=== PATIENT | female | born 1945 | race Caucasian/White ===

== ENCOUNTER → 2017-03-12 | Outpatient (CLI) | payer OTHER ==
--- NOTE | 2017-03-12 15:49 | MAMMOGRAPHY REPORT ---
BILATERAL DIGITAL SCREENING MAMMOGRAM WITH CAD: 03/12/2017 CLINICAL HISTORY: Routine screening. Patient has no complaints. TECHNIQUE: Bilateral CC, MLO and repeat left MLO views were obtained. Current study was also evalua valerie with a Computer Aided Detection (CAD) system. COMPARISON: Comparison is made to exams dated: 03/09/2016 mammogram, 03/08/2015 mammogram, 03/02/2014 m ammogram, 02/28/2013 mammogram, 11/03/2011 mammogram, and 11/02/2010 mammogram - [facility] ter. BREAST COMPOSITION: The tissue of both breasts is heterogeneously dense, which may obscure small ma sses. FINDINGS: There are bilateral rodlike secretory calcifications, and a benign coarse calcification w ithin the right breast. No new suspicious mass, architectural distortion or cluster of microcalcifi cations is seen. IMPRESSION: ACR BI-RADS CATEGORY 1: NEGATIVE There is no mammographic evidence of malignancy. A 1 year screening mammogram is recommended. The p atient will receive written notification of the results. Approximately 10% of breast cancers are not detected with mammography. A negative mammographic repor t should not delay biopsy if a clinically suggestive mass is present. Kaia Rosa M.D. ay/:03/12/2017 15:30:20 Landscape Nurseryman: Jeanette Edouard, [facility] letter sent: Normal 1/2 BI-RADS Code: ACR BI-RADS Category 1: Negative
== END | disposition home or self-care (01) ==
LOC: C.MAMM 13:53
PROVIDERS: ATTEND Family Medicine
DX: Z12.31 Encounter for screening mammogram for malignant neoplasm of breast (principal)

== ENCOUNTER → 2018-03-13 | Outpatient (CLI) | payer OTHER ==
--- NOTE | 2018-03-14 15:34 | MAMMOGRAPHY REPORT ---
BILATERAL DIGITAL SCREENING MAMMOGRAM TOMOSYNTHESIS WITH CAD: 03/13/2018 CLINICAL HISTORY: Routine screening. Patient has no complaints. TECHNIQUE: Breast tomosynthesis in addition to standard 2D mammography was performed. Current study was also evaluated with a Computer Aided Detection (CAD) system. COMPARISON: Comparison is made to exams dated: 03/09/2016 mammogram, 03/12/2017 mammogram, 03/08/2015 m ammogram, 03/02/2014 mammogram, 02/28/2013 mammogram, and 11/03/2011 mammogram - [facility] er. BREAST COMPOSITION: The tissue of both breasts is heterogeneously dense, which may obscure small mas ses. FINDINGS: No suspicious masses, calcifications, or areas of architectural distortion are noted in ei ther breast. There has been no significant interval change compared to prior exams. Scattered bilater al benign-appearing calcifications are not significantly changed. IMPRESSION: ACR BI-RADS CATEGORY 2: BENIGN There is no mammographic evidence of malignancy. A 1 year screening mammogram is recommended. The pa tient will receive written notification of the results. Approximately 10% of breast cancers are not detected with mammography. A negative mammographic report should not delay biopsy if a clinically suggestive mass is present. Jacqueline Holliday M.D. ah/:03/13/2018 15:28:26 Exceptional Children Teacher: Verenice KRAUS)(M), [facility] letter sent: Normal 1/2 BI-RADS Code: ACR BI-RADS Category 2: Benign
== END | disposition home or self-care (01) ==
LOC: C.MAMM 14:15
PROVIDERS: ATTEND Family Medicine
DX: Z12.31 Encounter for screening mammogram for malignant neoplasm of breast (principal)

== ENCOUNTER 2024-06-23 10:32 | Inpatient (IN) ==
--- NOTE | 2024-06-23 10:46 | Emergency Department Note ---
Impression & Plan Atrial fibrillation with RVR ADMIT ED Provider Note HPI: History obtained from patient. The patient is a very pleasant 79-year-old female who presents the emergency department with chief complaints of tachycardia. Patient states that she went to her outpatient provider's office today because she thought she might have a urinary tract infection. Patient states that when she was at the doctor's office they noted that her heart rate was markedly elevated and she was therefore sent to the ER to be evaluated. Patient states that this was a surprise to her as she was not having any symptoms in regards to palpitations, shortness of breath, or chest pain. On arrival here to the ED the patient is anxious appearing and she does have some restlessness and tremors, patient states she has a history of essential tremor. Patient denies any current chest pain or shortness of breath. Heart rate is noted to be elevated in the 140s on the monitor consistent with atrial fibrillation with RVR. ROS: - Per HPI Differential Diagnosis: New onset atrial fibrillation with RVR, SVT, WPW, ventricular tachycardia, acute coronary syndrome, critical electrolyte abnormalities, amongst other potential pathologies. *Outpatient medications and allergy history reviewed. PE: General: Alert HEENT: Normocephalic, trachea midline Eyes: Extraocular eye movement is intact, no scleral erythema Pulmonary: Clear to auscultation bilaterally, no wheezing Cardio: Tachycardic rate with an irregular rhythm GI: Abdomen is soft to palpation : No suprapubic tenderness MSK: No evidence of trauma or malformation of the extremities, no edema Skin: No evidence of rash Neuro: Alert, no focal deficits Psychiatric: Cooperative INDEPENDENT INTERPRETATIONS: maintainer plant: (As interpreted by myself): - An order was placed for continuous cardiac monitoring - Patient was noted to be in atrial fibrillation with a rate of 144 EKG: (As interpreted by myself): Rate: 146 Rhythm: Atrial flutter with 2-[address] changes: No ST elevation Intervals: Within normal limits Time: 1039 EKG #2: (As interpreted by myself): Rate: 102 Rhythm: Atrial flutter with variable block ST changes: No ST elevation Intervals: Within normal limits Time: 1121 Chest x-ray: (As interpreted by myself): No acute findings Interventions provided in ED: -IV fluid bolus, IV diltiazem, IV diltiazem drip, IV metoprolol Medical Decision Making: IV was established and lab work obtained, patient was placed on diagnostic cardiac sonographer. Lab work shows no leukocytosis, hemoglobin is normal, platelet count is normal, CMP does not show any evidence of any critical findings. Troponin is negative x 1. Magnesium is within normal limits. TSH is normal. Chest x-ray does not show any evidence of any acute disease. Patient was given IV fluids, diltiazem, as well as IV metoprolol. Heart rate did improve down into the 70s. Patient otherwise remained in no acute distress while here in the ED. This is new onset, patient will be admitted to the hospitalist service for further care and echocardiogram. Patient is in agreement to this plan and she was admitted in stable condition. Consultants/Discussions held with other healthcare providers: -Hospitalist, Dr. Johnson Disposition discussion held by myself with: -Patient * CRITICAL CARE TIME: ( 45 ) minutes -Stabilization of arrhythmia/atrial fibrillation with RVR requiring rate control medications via IV for stabilization, time spent at the bedside, interpretation of diagnostic studies including multiple EKGs, discussion with other healthcare providers and arrangement of admission Diagnosis: 1. Atrial fibrillation with RVR, acute 2. Hypertension, acute Disposition: Admission Momo Ken DO Emergency Medicine Past Med/Surg History Problem List (Updated 06/23/24 @ 13:42 by Momo Ken DO) Atrial flutter with rapid ventricular response Dysuria Atrial fibrillation with RVR (Acute) Encounter for pre-operative examination Encounter for pre-operative examination Medical History Astigmatism Essential tremor just on occasion Needle phobia "severe" > does not want IV on hands, starts to shake when thinking about needles Surgical History History of adenoidectomy History of cataract surgery LEFT History of colonoscopy History of hysterectomy History of tonsillectomy History of tooth extraction Social History Smoking Status: Never smoker Second Hand Exposure: No; Do You Dip or Chew Tobacco: No; Hx Alcohol Use: Yes Alcohol type: wine Preferred Language: Mongolian Communication Ability: Effective Court Security Officer Required: No Beliefs That Will Affect Care: None Current Living Situation: Alone Feels Safe at Home: Yes Assistive Devices: Glasses Allergies Allergies Allergy/AdvReac Type Severity Reaction Status Date / Time No Known Allergies Allergy Verified 08/08/21 06:35 Home Meds Home Medications Medication Instructions Recorded Confirmed acetaminophen 650 mg 650 mg PO Q12H PRN Pain 07/20/21 08/08/21 tablet,extended release biotin 800 mcg tablet 800 mcg PO QDL 07/20/21 08/08/21 cholecalciferol (vitamin D3) 50 50 mcg PO QDL 07/20/21 08/08/21 mcg (2,000 unit) tablet (Vitamin D3) cinnamon bark 500 mg capsule 500 mg PO QDL 07/20/21 08/08/21 (Cinnamon) diclofenac sodium 1 % topical gel 2 g topical QID PRN Pain 07/20/21 08/08/21 omega 3-ujt-jfn-fish oil 1,000 mg 1 cap PO QDL 07/20/21 08/08/21 (120 mg-180 mg) capsule (Fish Oil) zinc 50 mg tablet 50 mg PO QDL 07/20/21 08/08/21 Results & Data (ED) Vital Signs Vital Signs - 24 hr 06/23/24 10:38 06/23/24 10:38 06/23/24 10:42 Temperature Temperature Source Pulse Rate 147 H Pulse Rate [Right Finger] Respiratory Rate 33 H Respiratory Effort / Characteristics Respiratory Depth Blood Pressure 217/150 H 217/150 H Blood Pressure [Right Arm] Blood Pressure Mean 163 163 Blood Pressure Mean [Right Arm] Pulse Oximetry Oxygen Delivery Method Oxygen Flow Rate Sepsis Recent Fever Within 48 Hours Sepsis New/Unexplained Change in Mental Status Sepsis Action Taken by Nursing 06/23/24 10:54 06/23/24 11:00 06/23/24 11:21 Temperature Temperature Source Pulse Rate 147 H 146 H 125 H Pulse Rate [Right Finger] Respiratory Rate 21 29 H Respiratory Effort / Characteristics Respiratory Depth Blood Pressure Blood Pressure [Right Arm] Blood Pressure Mean Blood Pressure Mean [Right Arm] Pulse Oximetry Oxygen Delivery Method Oxygen Flow Rate Sepsis Recent Fever Within 48 Hours Sepsis New/Unexplained Change in Mental Status Sepsis Action Taken by Nursing 06/23/24 11:31 06/23/24 11:31 06/23/24 11:31 Temperature Temperature Source Pulse Rate Pulse Rate [Right Finger] Respiratory Rate Respiratory Effort / Characteristics Respiratory Depth Blood Pressure 150/110 H 150/110 H 150/110 H Blood Pressure [Right Arm] Blood Pressure Mean 114 114 114 Blood Pressure Mean [Right Arm] Pulse Oximetry Oxygen Delivery Method Oxygen Flow Rate Sepsis Recent Fever Within 48 Hours Sepsis New/Unexplained Change in Mental Status Sepsis Action Taken by Nursing 06/23/24 11:31 06/23/24 11:33 06/23/24 11:39 Temperature Temperature Source Pulse Rate 86 75 Pulse Rate [Right Finger] Respiratory Rate 17 22 Respiratory Effort / Characteristics Respiratory Depth Blood Pressure 150/110 H Blood Pressure [Right Arm] Blood Pressure Mean 114 Blood Pressure Mean [Right Arm] Pulse Oximetry Oxygen Delivery Method Oxygen Flow Rate Sepsis Recent Fever Within 48 Hours Sepsis New/Unexplained Change in Mental Status Sepsis Action Taken by Nursing 06/23/24 11:40 06/23/24 11:40 06/23/24 11:43 Temperature 36.5 C Temperature Source Oral Pulse Rate 145 H Pulse Rate [Right Finger] Respiratory Rate 20 Respiratory Effort / Characteristics Non-Labored Respiratory Depth Normal Blood Pressure 153/114 H 153/114 H 245/117 H Blood Pressure [Right Arm] Blood Pressure Mean 125 125 159 Blood Pressure Mean [Right Arm] Pulse Oximetry 99 Oxygen Delivery Method Room Air Oxygen Flow Rate Sepsis Recent Fever Within 48 Hours No Sepsis New/Unexplained Change in Mental Status No Sepsis Action Taken by Nursing No Action Required 06/23/24 11:47 06/23/24 11:47 06/23/24 11:57 Temperature Temperature Source Pulse Rate 110 H Pulse Rate [Right Finger] 77 Respiratory Rate 18 21 Respiratory Effort / Characteristics Non-Labored Respiratory Depth Normal Blood Pressure Blood Pressure [Right Arm] 200/102 H Blood Pressure Mean Blood Pressure Mean [Right Arm] 134 Pulse Oximetry 99 Oxygen Delivery Method Room Air Room Air Oxygen Flow Rate 99 Sepsis Recent Fever Within 48 Hours Sepsis New/Unexplained Change in Mental Status Sepsis Action Taken by Nursing 06/23/24 12:00 06/23/24 12:00 06/23/24 12:12 Temperature Temperature Source Pulse Rate 124 H Pulse Rate [Right Finger] Respiratory Rate 19 Respiratory Effort / Characteristics Respiratory Depth Blood Pressure 163/121 H 163/121 H Blood Pressure [Right Arm] Blood Pressure Mean 140 140 Blood Pressure Mean [Right Arm] Pulse Oximetry Oxygen Delivery Method Oxygen Flow Rate Sepsis Recent Fever Within 48 Hours Sepsis New/Unexplained Change in Mental Status Sepsis Action Taken by Nursing 06/23/24 12:31 06/23/24 13:00 Temperature Temperature Source Pulse Rate 102 H Pulse Rate [Right Finger] 74 Respiratory Rate 18 Respiratory Effort / Characteristics Non-Labored Respiratory Depth Normal Blood Pressure 169/95 H Blood Pressure [Right Arm] 146/91 H Blood Pressure Mean Blood Pressure Mean [Right Arm] 109 Pulse Oximetry 97 Oxygen Delivery Method Room Air Oxygen Flow Rate Sepsis Recent Fever Within 48 Hours Sepsis New/Unexplained Change in Mental Status Sepsis Action Taken by Nursing Laboratory Data 06/23/24 10:50 06/23/24 10:50 Lab Results 06/23/24 Range/Units 10:50 WBC 7.47 (4.8-10.8) K/ul RBC 4.48 (4.20-5.40) M/uL Hgb 14.3 (12.0-16.0) g/dl Hct 43.2 (37.0-47.0) % MCV 96.4 (80.0-100.0) fL MCH 31.9 (25.0-34.0) pg MCHC 33.1 (32.0-36.0) g/dL RDW Std Deviation 48.1 H (36.4-46.3) fL RDW Coeff of Walker 13.5 (11.5-14.5) % Plt Count 228 (130-400) K/uL MPV 9.9 (9.4-12.4) fL Immature Gran % (Auto) 0.1 % Neut % (Auto) 67.0 % Lymph % (Auto) 23.4 % [place] % (Auto) 8.7 % Eos % (Auto) 0.3 % Baso % (Auto) 0.5 % Neut # (Auto) 5.00 (1.40-6.50) K/uL Lymph # (Auto) 1.75 (1.20-3.40) K/uL [place] # (Auto) 0.65 H (0.11-0.59) K/uL Eos # (Auto) 0.02 (0.00-0.50) K/uL Baso # (Auto) 0.04 (0.00-0.20) K/uL Immature Gran # (Auto) 0.01 (0.01-0.20) K/uL PT 11.0 (9.0-12.0) Seconds INR 1.0 (0.9-1.1) Sodium 137 (136-145) mmol/L Potassium 4.4 (3.5-5.1) mmol/L Chloride 103 (98-107) mmol/L Carbon Dioxide 23 (21-32) mmol/L Anion Gap 11 (3-11) BUN 18 (6-23) mg/dl Creatinine 0.82 (0.6-1.2) mg/dl Est Cr Clr Drug Dosing Not Reportable Est GFR ( Amer) 80.0 ml/min Est GFR (Non-Af Amer) 69.0 ml/min BUN/Creatinine Ratio 22.0 H (10-20) Glucose 124 H (70-99(Fasting)) mg/dl Calcium 9.7 (8.6-10.3) mg/dl Magnesium 2.2 (1.7-2.4) mg/dl Total Bilirubin 0.6 (0.2-1.0) mg/dl AST 20 (13-39) U/L ALT 16 (7-52) U/L Alkaline Phosphatase 72 (34-104) U/L Troponin I High Sens 11.8 (0-14) pg/ml Total Protein 7.8 (6.0-8.3) gm/dl Albumin 4.5 (3.4-5.0) gm/dl Globulin 3.3 (2.5-4.0) gm/dl Albumin/Globulin Ratio 1.4 (0.9-2) TSH 1.880 (0.300-4.500) uIu/ml Administered Medications Diltiazem HCl 125 mg/ Dextrose 125 mls @ 5 mls/hr IV .Q24H [facility]; Protocol Stop: 07/23/24 12:14 Last Admin: 06/23/24 12:31 Dose: 5 mg/hr, 5 mls/hr Documented By: ALS Co-signed By: ADRIÁN Discontinued Medications Diltiazem HCl (Diltiazem Hcl 5 Mg/Ml 5 Ml Vial) 15 mg IV NOW STA Stop: 06/23/24 10:52 Last Admin: 06/23/24 11:03 Dose: 15 mg Documented By: ALS Co-signed By: ADRIÁN Sodium Chloride (Nss) 500 mls @ 999 mls/hr IV .Q31M STA Stop: 06/23/24 11:13 Last Admin: 06/23/24 11:33 Dose: 999 mls/hr Documented By: ADRIÁN Sodium Chloride (Nss) 1,000 mls @ 999 mls/hr IV .Q1H1M ONE Stop: 06/23/24 11:46 Last Admin: 06/23/24 11:33 Dose: 999 mls/hr Documented By: HS Lorazepam (Lorazepam 1 Mg/1 Ml Syr Ed Inj Use) 1 mg IV ONE STA Stop: 06/23/24 10:44 Last Admin: 06/23/24 11:00 Dose: 1 mg Documented By: ALS Metoprolol Tartrate (Metoprolol Tartrate 1 Mg/Ml Vial) 5 mg IV NOW STA Stop: 06/23/24 12:09 Last Admin: 06/23/24 12:31 Dose: 5 mg Documented By: ALS Imaging Data Radiologist's Impression: Chest X-Ray 06/23/24 10:43 XR chest 1V portable CLINICAL HISTORY: Dysrhythmia COMPARISON STUDY: No previous studies for comparison. FINDINGS: Lung volumes are normal. Lungs are clear. There is no pneumothorax or pleural effusion. There is mild cardiomegaly. Mediastinal contours are normal. There is no evidence for pulmonary edema. IMPRESSION: No acute cardiopulmonary findings. Cardiomegaly. ACT 112: Negative or not required by law. Electronically signed by: Jeferson Go M.D. 06/23/2024 11:30 AM Discharge Plan Visit Data Chief Complaint: Cardiac Assessment ED Provider: Momo Ken Discharge Problem: Atrial fibrillation with RVR Forms Stand Alone Forms: [facility] [employer] Prescriptions Prescriptions: No Action biotin 800 mcg Tablet 800 mcg PO QDL acetaminophen 650 mg Tablet Extended Release 650 mg PO Q12H PRN (Reason: Pain) zinc 50 mg Tablet 50 mg PO QDL cinnamon bark [Cinnamon] 500 mg Capsule 500 mg PO QDL diclofenac sodium 1 % Gel 2 g TOPICAL QID PRN (Reason: Pain) cholecalciferol (vitamin D3) [Vitamin D3] 50 mcg (2,000 unit) Tablet 50 mcg PO QDL omega 2-ldz-cfg-fish oil [Fish Oil] 1,000 mg (120 mg-180 mg) Capsule 1 cap PO QDL Referrals Referrals: Edilia Barrientos DO [Primary Care Provider] -
[2024-06-23] MEDS: LORazepam 1 MG/1 ML SYR ED Inj Use IV STA (11:00)
[2024-06-23] MEDS: dilTIAZem HCl 5 MG/ML 5 ML VIAL IV STA (11:03)
[2024-06-23 11:10] LABS: Basophils # (auto) 0.04 K/uL (0.00-0.20); Basophils % (auto) 0.5 %; Eosinophils # (auto) 0.02 K/uL (0.00-0.50); Eosinophils % (auto) 0.3 %; Hematocrit (blood only) 43.2 % (37.0-47.0); Hemoglobin 14.3 g/dl (12.0-16.0); Immature Granulocytes # (auto) 0.01 K/uL (0.01-0.20); Immature Granulocytes % (auto) 0.1 %; Lymphocytes # (auto) 1.75 K/uL (1.20-3.40); Lymphocytes % (auto) 23.4 %; Mean Corpuscular Hemoglobin 31.9 pg (25.0-34.0); Mean Corpuscular Hgb Conc 33.1 g/dL (32.0-36.0); Mean Corpuscular Volume 96.4 fL (80.0-100.0); Mean Platelet Volume 9.9 fL (9.4-12.4); Monocytes # (auto) 0.65 K/uL (0.11-0.59); Monocytes % (auto) 8.7 %; Platelet Count 228 K/uL (130-400); RDW Coefficient of Variation 13.5 % (11.5-14.5); RDW Standard Deviation 48.1 fL (36.4-46.3); Red Blood Count 4.48 M/uL (4.20-5.40); White Blood Count 7.47 K/ul (4.8-10.8)
[2024-06-23 11:25] LABS: Alanine Aminotransferase 16 U/L (7-52); Albumin Globulin Ratio 1.4 (0.9-2); Albumin Level 4.5 gm/dl (3.4-5.0); Alkaline Phosphatase 72 U/L (34-104); Anion Gap 11 (3-11); Aspartate Aminotransferase 20 U/L (13-39); Bilirubin,Total 0.6 mg/dl (0.2-1.0); Blood Urea Nitrogen 18 mg/dl (6-23); Calcium 9.7 mg/dl (8.6-10.3); Carbon Dioxide 23 mmol/L (21-32); Chloride 103 mmol/L (98-107); Globulin 3.3 gm/dl (2.5-4.0); Glucose 124 mg/dl (70-99(Fasting)); Magnesium 2.2 mg/dl (1.7-2.4); Potassium 4.4 mmol/L (3.5-5.1); Sodium 137 mmol/L (136-145); Total Protein 7.8 gm/dl (6.0-8.3)
[2024-06-23 11:28] LABS: Troponin I High Sensitivity 11.8 pg/ml (0-14)
--- NOTE | 2024-06-23 11:32 | XRay Report ---
XR chest 1V portable CLINICAL HISTORY: Dysrhythmia COMPARISON STUDY: No previous studies for comparison. FINDINGS: Lung volumes are normal. Lungs are clear. There is no pneumothorax or pleural effusion. The re is mild cardiomegaly. Mediastinal contours are normal. There is no evidence for pulmonary edema. IMPRESSION: No acute cardiopulmonary findings. Cardiomegaly. ACT 112: Negative or not required by law. Electronically signed by: Jeferson Go M.D. 06/23/2024 11:30 AM
[2024-06-23] MEDS: SODIUM CHLORIDE 0.9% 500 ML IV STA (11:33)
[2024-06-23] MEDS: SODIUM CHLORIDE 0.9% 1,000 ML IV ONE (11:33)
--- NOTE | 2024-06-23 11:52 | History & Physical Report ---
Date of Service June 23, 2024 Assessment & Plan (1) Atrial flutter with rapid ventricular response: Plan: -Patient was found to be in Atrial flutter with RVR in the ED. -No history of A-fib/flutter previously. -Initially given metoprolol, Ativan, and 15mg diltiazem. Then patient still remains tachycardic. -Diltiazem drip started at time of admission. Will transition to p.o. after echo and once patient reverts back to sinus rhythm. -CBC benign, PT/INR normal, CMP benign, TSH normal. -Troponin negative. -ECHO ordered. -[id number] of 3, has-bled 0. -Will start on Eliquis 5mg BID. Discussed with patient, patient in agreement. -CBC, CMP, hemoglobin A1c, lipid panel, magnesium, and phosphorus ordered for the a.m. (2) Dysuria: Plan: -Patient with dysuria and urine frequency which prompted her to see her PCP this morning. -UA from the office without gross abnormality for UTI. UA in the ED negative for UTI. -Will hold off on antibiotics at this time. Plan Fluids: none Nutrition: NPO Code status: full code DVT ppx: elqiuis Dispo:MedSurg with telemetry History of Present Illness Chief Complaint: New onset A-flutter Primary Care Provider: Edilia Barrientos DO Patient is a 79-year-old female who presents to the hospital after having an abnormal EKG done at her PCP. Patient was seen by PCP this morning for possible UTI symptoms. She did not have any chest pain or cardiac symptoms though was found to have A-fib/a flutter on EKG. She was instructed to go to the emergency room. In the emergency department patient has tachycardia though is not having any chest pain, palpitations or shortness of breath. Patient does have some tremors though does have a history of essential tremors and states that she gets very worked up when having to deal with needles. Patient does state that she has been urinating a lot and having some dysuria over the past couple days. Denies any chest pain, fevers or chills, palpitations, shortness of breath, or abdominal pain over the last couple days. Does state that she had some bladder pressure. In the ED: Patient is tachycardic with heart rate in the 140s and EKG showing atrial flutter with RVR. Patient was given Ativan, metoprolol, and diltiazem in the ED. She still remained tachycardic so was started on a Cardizem drip. Allergies Allergy/AdvReac Type Severity Reaction Status Date / Time No Known Allergies Allergy Verified 06/23/24 20:38 Home Medications Medication Instructions Recorded Confirmed Type acetaminophen 650 mg 650 mg PO Q12H PRN Pain 07/20/21 06/23/24 History tablet,extended release biotin 800 mcg tablet 800 mcg PO QDL 07/20/21 06/23/24 History cholecalciferol (vitamin D3) 50 50 mcg PO QDL 07/20/21 06/23/24 History mcg (2,000 unit) tablet (Vitamin D3) diclofenac sodium 1 % topical gel 2 g topical QID PRN Pain 07/20/21 06/23/24 History omega 7-fpx-yum-fish oil 1,000 mg 1 cap PO QDL 07/20/21 06/23/24 History (120 mg-180 mg) capsule (Fish Oil) zinc 50 mg tablet 50 mg PO QDL 07/20/21 06/23/24 History magnesium 250 mg tablet 250 mg PO DAILY 06/23/24 06/23/24 History Past Med/Surg History Problem List (Updated 06/23/24 @ 13:42 by Momo Ken DO) Atrial flutter with rapid ventricular response Dysuria Atrial fibrillation with RVR (Acute) Encounter for pre-operative examination Encounter for pre-operative examination Medical History Astigmatism Essential tremor just on occasion Needle phobia "severe" > does not want IV on hands, starts to shake when thinking about needles Surgical History History of adenoidectomy History of cataract surgery LEFT History of colonoscopy History of hysterectomy History of tonsillectomy History of tooth extraction Social History Smoking Status: Never smoker Second Hand Exposure: No; Do You Dip or Chew Tobacco: No; Hx Alcohol Use: No Hx Substance Use: No Preferred Language: Barbadian Communication Ability: Effective Power Digger Operator Required: No Beliefs That Will Affect Care: None Current Living Situation: Alone Feels Safe at Home: Yes Safety Concerns: Feels Safe At This Time Assistive Devices: Glasses Review of Systems Review of Systems: All systems reviewed & are unremarkable except as noted in Subjective Physical Exam Physical Exam: Constitutional: well-appearing, mild acute distress, shaking HEENT: NCAT, no conjunctival injection CV: Irregularly irregular rate and rhythm, no murmur appreciated, extremities well-perfused, no LE edema Resp: CTABL, no wheezes/rales/rhonchi appreciated, no increased work of breathing GI: soft, nondistended, nontender, BS normoactive MSK: no gross deformities appreciated Skin: warm, dry, no rash appreciated Neuro: alert, oriented, no focal neurologic deficit appreciated Results & Data Results & Data Vital Signs (Past 12 Hours) Vital Signs Temp Pulse Pulse Resp BP BP Pulse Ox 06/23/24 11:47 77 18 200/102 H 99 06/23/24 11:47 06/23/24 11:43 36.5 C 145 H 20 245/117 H 99 06/23/24 10:54 147 H O2 Del Method O2 Flow Rate 06/23/24 11:47 Room Air 06/23/24 11:47 Room Air 99 06/23/24 11:43 Room Air 06/23/24 10:54 Supervising Physician Co-Signing Physician Notes I personally saw and examined the patient. I independently reviewed the labs, EKG, imaging, problem list, medication list, past medical history and family history. 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 Well controlled now on dilt drip @ 5mg/hr. TTE with preserved EF and no wall motion abnormalities. O/E HS RRR, no murmurs, Chest CTAB, Abdo SNT A/P A. flutter RVR - Eliquis for anticoagulation, rate controlled now for hours on diltiazem 5mg /hr therefore will switch to 60mg PO TID with goal of switching to CD on discharge since TTE shows preserved EF. Patient very needle phobic and on discussion with benefits/risks she does not want any further labs unless absolutely necessary Mg > 2, K > 4. Resident Activity Tracking Resident Involvement: Resident Care Provided Care Provided: Adult [facility]
[2024-06-23] MEDS: dilTIAZem HCL 125 MG in DEXTROSE 5% 100 ML IV SCH (12:31)
[2024-06-23] MEDS: METOPROLOL TARTRATE 1 MG/ML VIAL IV STA (12:31)
[2024-06-23 13:55] LABS: Appearance Urine Clear (Clear); Bilirubin Urine Negative (Negative); Blood Urine Negative (Negative); Color Urine Yellow; Glucose Urine UA Negative (Negative); Ketones Urine Negative (Negative); Leukocyte Esterase Urine Negative (Negative); Nitrite Urine Negative (Negative); Protein Urine Negative (Negative); Specific Gravity Urine 1.006 (1.000-1.030); Urobilinogen Urine Negative (Negative)
[2024-06-23 14:49] LABS: Partial Thromboplastin Ratio 0.9; Partial Thromboplastin Time 24 Seconds (21-31)
[2024-06-23] MEDS: STAT IV Infusion **Titration per Protocol STA (15:03)
--- NOTE | 2024-06-23 19:10 | XCELERA ---
[id number]
[2024-06-23] MEDS: APIXABAN 5 MG TABLET PO SCH (20:03)
[2024-06-23] MEDS: dilTIAZem HCl 60 MG TAB PO SCH (21:12)
--- NOTE | 2024-06-24 04:55 | Billing Data ---
Date of Service June 23, 2024 Coding Level of Care Code 86019 INT INP/OBS CARE
[2024-06-24] MEDS: METOPROLOL TARTRATE 1 MG/ML VIAL IV STA (13:08)
[2024-06-24] MEDS: OPTIRAY 320 125ml IV ONE (14:10)
--- NOTE | 2024-06-24 15:31 | CT Scan Report ---
CT ANGIOGRAM OF THE BRAIN CLINICAL HISTORY: Family history of aneurysm. COMPARISON STUDY: No priors. TECHNIQUE: Following the IV administration of 120 cc of Optiray 320, CT angiogram of the brain was pe rformed from the skull base to the vertex. Images are reviewed in the axial, sagittal, and coronal pl anes. 3-D MIPS images are created and assessed. IV contrast was administered without complication. A dose lowering technique was utilized adhering to the principles of ALARA. CT DOSE: 424.06 mGy.cm FINDINGS: Brain parenchyma: There is age related involutional change noting mildly arthropathic disease. There is no evidence of hemorrhage, mass effect, or acute territorial ischemia noting angiographic phase te [place]nique. There is no evidence of enhancing mass lesion on the angiogram phase images. No extra-axial fluid collection is seen. Mccollum-white matter differentiation is preserved. Ventricles, sulci, and cisterns: Normal in configuration. CT angiogram of the brain: The internal carotid arteries are widely patent, as are the anterior and m iddle cerebral arteries. The left A1 segment is atretic. The vertebrobasilar system and posterior cer ebral arteries are widely patent. The left vertebral artery is dominant. There is a left posterior co mmunicating artery. There is no aneurysm, high-grade stenosis, or focal vessel cutoff identified thro ughout the intracranial circulation. Dural sinuses: Clear as visualized. Orbits: The bony orbits are intact. The orbital contents are normal as visualized noting bilateral oc ular lens implants. Sinuses and mastoids: The visualized paranasal sinuses are clear. There is trace right mastoid effusi on. The left mastoid air cells are well pneumatized. Calvarium: Unremarkable. IMPRESSION: 1. There is no evidence of hemorrhage, mass effect, or acute territorial ischemia noting angiographic phase technique. 2. Unremarkable CT angiogram of the brain. ACT 112: Negative or not required by law. Electronically signed by: J Luis Vidal M.D. 06/24/2024 3:29 PM
--- NOTE | 2024-06-24 15:36 | CT Scan Report ---
NECK CTA HISTORY: [facility] ruptured brain aneurysm TECHNIQUE: Multiaxial CT images of the neck were performed following the intravenous administration o f contrast to evaluate the major cervical vessels. 3D/MIP images were also obtained. Sagittal and cor onal reformats were reviewed. All measurements were calculated based on NASCET criteria. A dose low ering technique was utilized adhering to the principles of ALARA. COMPARISON STUDY: None. FINDINGS: The aortic arch and proximal great vessels are widely patent. There is no significant sten osis, occlusion, or dissection identified within the bilateral common carotid, internal carotid, or v ertebral arteries. Degenerative changes within the cervical spine. There is a 1 cm hypodense nodule/c yst within the left side of the vallecula. There are few subcentimeter thyroid nodules. These do not meet CT criteria for follow-up. There is a hypoplastic right vertebral artery. IMPRESSION: 1. No significant stenosis, occlusion, or dissection identified within the carotid or vertebral arter ies. 2. There is a 1 cm hypodense nodule/cyst within the left side of the vallecula. Direct visualization recommended for further evaluation. ACT 112: Negative or not required by law. Electronically signed by: Fidel Ribeiro M.D. 06/24/2024 3:34 PM
--- NOTE | 2024-06-24 20:44 | Hospitalist Progress Note ---
Date of Service June 24, 2024 Assessment & Plan (1) Atrial flutter with rapid ventricular response: Plan: Improved rates with IR diltiazem. Will transition to diltiazem CD 180mg daily. CHADS-VASc score of 3 (sex, age) - discussed pros/cons, risks/benefits of anticoagulation - patient agreeable. Start Eliquis 5mg BID. $47/month cost. Echo with preserved EF. TSH wnl. Observe rates overnight to ensure good rate control. (2) Dysuria: Plan: Patient with dysuria and urine frequency which prompted her to see her PCP the AM of admission. UA from the office without gross abnormality for UTI. UA in the ED completely normal. Will have to see if a urine cx was sent from the office. Check urine GC/chla to be complete. (3) Family history of brain aneurysm: Plan: father, other paternal relatives in light of initiation of Eliquis she was agreeable to aneurysm screening CTA head/neck completed - NO ANEURYSMS seen Incidental finding of vallecula lesion - sent to ENT post-d/c for this Plan likely home in am Admission and Anticipated Discharge Date Admission Date: June 23, 2024 Subjective patient feeling well even when her HR is fast on monitors she has NO palpitations, chest pain, dyspnea or dizziness/lightheadedness walks 4 miles/day for exercise with no limitations we discussed anticoagulation for stroke risk reduction (CHADS-VASC score is 3) she is agreeable to Eliquis she reports strong famhx of cerebral aneurysms father in his 60s from rupture of such other paternal family members with cerebral aneurysms as well has never had screening herself has a 4 month long cruise she is leaving for on Sunday departs from the [facility] anxious to d/c home to prepare for this continues with dysuria tele - rates 120s at peak with exercise; otherwise rates <100 at rest Review of Systems Review of Systems: CV - no cp, no orthopnea, no edema pulm - no dyspnea or STEWART GI - no abd pain neuro - no dizziness or lightheadedness Physical Exam Physical Exam: gen - NAD, looks well neck - no JVD mouth - MMM heart - irregular, s1 s2, no murmur; rate <100 abd - soft NT ND BS+ ext - no edema, pulses 2+ b/l psych - a/o x 3 neuro - tremor of head/neck (essential) Results & Data Results & Data Vital Signs (Past 12 Hours) Vital Signs Temp Pulse Pulse Resp BP Pulse Ox O2 Del Method 06/24/24 19:14 36.5 C 78 18 157/86 H 98 Room Air 06/24/24 16:41 36.6 C 75 17 142/82 H 96 06/24/24 15:50 36.6 C 75 17 142/82 H 96 Room Air 06/24/24 14:28 88 06/24/24 12:17 36.6 C 82 17 156/84 H 97 Room Air PG Care Time/CCT Total # of Minutes Spent Total Time Spent with Patient: Total time spent is greater than 50% in coordination of care (as documented) at patient's floor/unit and/or counseling patient: Coding Level of Care Code 15235 SUB INP/OBS CARE 2/35MIN Diagnoses Atrial flutter with rapid ventricular response I48.92 Dysuria R30.0 Family history of brain aneurysm Z82.49
[2024-06-24] MEDS: dilTIAZem HCL 180 MG CAPCR PO SCH (21:38)
--- NOTE | 2024-06-25 05:47 | Electrocardiogram Report ---
Test Reason : Blood Pressure : */* mmHG Vent. Rate : 146 BPM Atrial Rate : 292 BPM P-R Int : * ms QRS Dur : 66 ms QT Int : 234 ms P-R-T Axes : 104 92 22 degrees QTcB Int : 364 ms Suspect arm lead reversal, interpretation assumes no reversal Atrial flutter with 2:1 A-V conduction Rightward axis Abnormal ECG No previous ECGs available Confirmed by Donavan Taylor ([id number]) on 06/25/2024 5:47:33 AM Referred By: Confirmed By: Donavan Taylor
--- NOTE | 2024-06-25 09:49 | Cardiology Consultation ---
Date of Consultation June 25, 2024 Assessment & Plan (1) Atrial flutter with rapid ventricular response: Plan 1. Atrial flutter: She presented in atrial flutter, it was asymptomatic so the duration is not known. She did have a physical examination in the summer 2022, this was by a nurse in her home for insurance so I suspect if she had a rapid heart rate it would have been detected but an electrocardiogram was not done. We have to assume it is longstanding and that she will need anticoagulation before conversion, or we could consider VON guided cardioversion but I would prefer not since she may have an early recurrence and will be on a cruise ship. Her heart rate is overall adequately controlled, she does go 2-1 when she is active but that is relatively infrequent based on telemetry and for the most part on telemetry her heart rate is adequately controlled. I would therefore recommend continuing Eliquis, I agree with diltiazem, probably 240 mg daily, and I can give her prescriptions to last her until she gets back. She is going to be back at the end of July, so I can schedule her to come into the office in early August and see if she is still in atrial flutter and if so we can cardiovert. I do not think we should try to control the heart rate tightly as if she converts on her own, which is certainly possible, she may be quite slow and she will be on a ship. I think her current rate control is adequate with normal LV function. History of Present Illness Reason for Consultation: Atrial flutter Attending Physician: Mike Mckeon MD History of Present Illness This is a 79-year-old woman who presented to her PCP on the morning of June 23, 2024 for possible UTI symptoms. She was noted to be in atrial fibrillation with a rapid heart rate and was sent to the emergency room. Her presenting electrocardiogram here shows a fairly well organized atrial flutter at about 102 bpm. She evidently had no symptoms regarding this arrhythmia. It is not clear how long she has had this arrhythmia. An echocardiogram done June 23, 2024 shows normal left ventricular size with concentric left ventricular hypertrophy and an ejection fraction 55 to 60%. Mild mitral regurgitation. She has not had any symptoms which would help us determine the duration of her arrhythmia. She has not had an electrocardiogram for a long time, she did have a life insurance evaluation in the summer 2022 but that may not have picked it up and I do not think she had an electrocardiogram at that time. She has been very active and has no symptoms or limitations in activities. Allergies Allergy/AdvReac Type Severity Reaction Status Date / Time No Known Allergies Allergy Verified 06/23/24 20:38 Home Medications Medication Instructions Recorded Confirmed Type acetaminophen 650 mg 650 mg PO Q12H PRN Pain 07/20/21 06/23/24 History tablet,extended release biotin 800 mcg tablet 800 mcg PO QDL 07/20/21 06/23/24 History cholecalciferol (vitamin D3) 50 50 mcg PO QDL 07/20/21 06/23/24 History mcg (2,000 unit) tablet (Vitamin D3) zinc 50 mg tablet 50 mg PO QDL 07/20/21 06/23/24 History magnesium 250 mg tablet 250 mg PO DAILY 06/23/24 06/23/24 History diltiazem HCl 240 mg 240 mg PO DAILY #90 caps 06/25/24 Rx capsule,extended release 24 hr (Cardizem CD) apixaban 5 mg tablet (Eliquis) 5 mg PO BID #180 tabs 06/26/24 Rx Patient History Medical History Astigmatism Essential tremor just on occasion Needle phobia "severe" > does not want IV on hands, starts to shake when thinking about needles Surgical History History of cataract surgery LEFT History of hysterectomy History of colonoscopy History of tooth extraction History of adenoidectomy History of tonsillectomy Social History Smoking Status: Never smoker Second Hand Exposure: No; Do You Dip or Chew Tobacco: No; Hx Alcohol Use: No Hx Substance Use: No Preferred Language: Urdu Communication Ability: Effective Embedded Systems Software Developer Required: No Beliefs That Will Affect Care: None Current Living Situation: Alone Feels Safe at Home: Yes Assistive Devices: Glasses Physical Exam Physical Exam: Constitutional: Alert, cooperative and in no distress. HEENT: Unremarkable Neck: No jugular venous distention, carotid pulses are irregular but otherwise normal and equal bilaterally without bruits. Pulmonary: Clear to auscultation bilaterally. Cardiac: Irregular rhythm with no murmur, gallop or rub. Abdomen: Soft, nontender with normal bowel sounds. Extremities: No edema. Distal pulses intact. Neurologic: No focal findings. Gait is steady. Skin: No rash, ecchymoses or petechiae. Results & Data Vital Signs (Past 12 Hours) Vital Signs Temp Pulse Pulse Resp BP Pulse Ox O2 Del Method 06/25/24 07:42 36.7 C 82 18 180/103 H 94 Room Air 06/25/24 04:15 36.6 C 87 18 158/87 H 95 Room Air 06/24/24 23:03 76 06/24/24 22:24 36.5 C 74 18 149/84 H 95 Room Air Diagnostic Findings Telemetry: Atrial flutter with a controlled but somewhat variable ventricular response. PG Care Time/CCT Total # of Minutes Spent Total Time Spent with Patient: Total time spent is greater than 50% in coordination of care (as documented) at patient's floor/unit and/or counseling patient: Coding Level of Care Code 79380 IN/OBS CONSULT LVL 4,60M Diagnoses Atrial flutter with rapid ventricular response I48.92
[2024-06-25] MEDS: dilTIAZem HCl 60 MG TAB PO ONE (09:52)
--- NOTE | 2024-06-25 10:45 | Discharge Summary ---
Discharge Summary Date of Service date of admission - June 23, 2024 date of discharge - June 25, 2024 Principal Dx & Hospital Course #1 = Principal Diagnosis (1) Atrial flutter with rapid ventricular response: Presented with asymptomatic atrial flutter with RVR. Was initially on diltiazem infusion, then IR diltiazem, then transitioned to d iltiazem CD 240mg daily. CHADS-VASc score of 3 (sex, age) - discussed pros/cons, risks/benefits of anticoagulation - patient agreeable. Started Eliquis 5mg BID. $47/month cost. Echo with preserved EF. Left atrium and right atrium both mildly dilated. TSH wnl. K/mag levels wnl. Rates at rest were generally well-controlled. Rates with activity were 100-120, occasionally higher at times. Seen by Dr Nomi Joshi, [facility]. He will see Ms Chen in the office in ~2 months. If she remains in a.flutter consideration towards elective cardioversion will be discussed at that time. (2) Dysuria: Patient with dysuria and urine frequency which prompted her to see her PCP the AM of admission. UA from the office without gross abnormality for UTI. UA in the ED completely normal. Urine cx sent from the office did not grow a pathogen. Checked urine GC/chla to be complete - both returned negative. (3) Family history of brain aneurysm: father, other paternal relatives with h/o brain aneurysm. in light of initiation of Eliquis she was agreeable to aneurysm screening. CTA head/neck completed - NO ANEURYSMS seen. Incidental finding of vallecula lesion/nodule - send to ENT post-d/c for this. (4) Abnormal CT scan, neck: Incidental finding of vallecula lesion/nodule on CTA neck - send to ENT post-d/c for this. Of note - she denies any trouble with swallowing, breathing, etc. Notes For Next Care Provider 1. f/u [facility] - Nomi Joshi - in about 2 months 2. ENT F/u for ?vallecula lesion seen on CT imaging Medication Changes From Visit 1. Diltiazem CD 240mg daily 2. Eliquis 5mg BID Admission HPI Per Admitting Provider Patient is a 79-year-old female who presents to the hospital after having an abnormal EKG done at her PCP. Patient was seen by PCP this morning for possible UTI symptoms. She did not have any chest pain or cardiac symptoms though was found to have A-fib/a flutter on EKG. She was instructed to go to the emergency room. In the emergency department patient has tachycardia though is not having any chest pain, palpitations or shortness of breath. Patient does have some tremors though does have a history of essential tremors and states that she gets very worked up when having to deal with needles. Patient does state that she has been urinating a lot and having some dysuria over the past couple days. Denies any chest pain, fevers or chills, palpitations, shortness of breath, or abdominal pain over the last couple days. Does state that she had some bladder pressure. In the ED: Patient is tachycardic with heart rate in the 140s and EKG showing atrial flutter with RVR. Patient was given Ativan, metoprolol, and diltiazem in the ED. She still remained tachycardic so was started on a Cardizem drip. Discharge Exam gen - NAD, looks well neck - no JVD mouth - MMM, no posterior throat lesions heart - irregular, s1 s2, no murmur; rate <100 abd - soft NT ND BS+ ext - no edema, pulses 2+ b/l psych - a/o x 3 neuro - tremor of head/neck (essential) Discharge Plan Discharge Items Patient Disposition: Home - Self-Care Reason For Visit: atrial flutter Discharge Diagnosis: 1. Atrial flutter 2. CT scan of neck with small nodule in upper airway - ENT follow-up needed 3. No aneurysms on brain & neck CT scans 4. Recent burning with urination - resolved; recent urine culture without infection Activity: As commented below Activity Comment: avoid heavy/strenuous activities Exercise/Sports: Wait until after follow-up appointment Non-emergency contact: Primary Care Provider, Specialist and Bond Analyst Call non-emergency contact if: you have any medication questions and your symptoms worsen Follow-up/Referrals: Nomi Joshi MD [Physician] - 12/19/24 9:00 am (2 months - follow-up for atrial flutter Cardiology Follow Up December 19, 2024 at 9:00am Will be placed on waiting list for sooner appointment) Kolby Don MD [Physician] - 09/01/24 9:00 am (1cm nodule vs cyst upper airway on CT neck; 2 months ENT Appointment with Dr. Richmond September 01 at 9:00 am) Edilia Barrientos DO [Primary Care Provider] - (ideally please see Dr Barrientos or one of her partners before leaving for your trip ) Diet: Regular Addtl Attending Provider Instructions: Ms Chen, [place] were hospitalized due to a new diagnosis of atrial flutter (see handouts). This is an abnormal heart rhythm that originates from the top portion of the heart. This type of heart rhythm has tendencies to go very fast with rapid heart rates well over 100 in most cases. You were started on medicine to help control/reduce the heart rate. You were also initiated on blood thinning medication ("anticoagulation") which reduces the risk of blood clot formation in the heart. By preventing blood clot formation in the heart you can reduce the risk of stroke from atrial flutter. Dr Nomi Joshi from [facility] saw you in consult for the atrial flutter. The following are recommended - 1. Diltiazem CD 240mg once daily, first dose tomorrow morning 06/26/24 2. Eliquis 5mg twice daily every day, first dose TONIGHT Dr Joshi will see you in his office upon your return from your trip. If the atrial flutter is still uncontrolled or causing problems he could perform "Cardioversion" sometime in the future. Cardioversion is a procedure in which we shock the heart back into a normal rhythm. In addition to the above medicines please - 1. avoid use of motrin, ibuprofen, naprosyn, aleve, aspirin (anti-inflammatory medicine) 2. stop your fish oil supplement 3. with respect to your diclofenac gel - please use this sparingly for muscle/joint pain (once a day or less is best) As we discussed your CT scans of the head/neck did NOT show any aneurysms. That is great news. Incidentally the radiologist saw a tiny 1cm cyst or nodule in the back of the throat/upper airway. You will need a referral to ENT to have this checked. Follow-up - see separate section Other recommendations - * avoid excessive consumption of alcohol; 1 alcoholic drink or less per day is best in light of your new Eliquis use * when shaving use an electric or battery operated shaver rather than a traditional razor Seek medical attention if - * you check your resting heart rate/pulse and it is consistently greater than 110 * you have shortness of breath * you have chest pains * you have rapid heart beating/palpitations * you feel dizzy or lightheaded * you have worsening swelling/edema in your legs * you have bleeding from your bladder, your rectum, your skin, your nose, etc * any other concerns It was our pleasure to care for you! Safe Travels! Pending Studies at Discharge: No Stand-Alone Forms: My [facility] [employer], Smoking Cessation Medications and DC Order Prescriptions: New diltiazem HCl [Cardizem CD] 240 mg capsule,extended release 24hr 240 mg PO DAILY Qty: 90 1RF Continued biotin 800 mcg Tablet 800 mcg PO QDL acetaminophen 650 mg Tablet Extended Release 650 mg PO Q12H PRN (Reason: Pain) zinc 50 mg Tablet 50 mg PO QDL cholecalciferol (vitamin D3) [Vitamin D3] 50 mcg (2,000 unit) Tablet 50 mcg PO QDL magnesium 250 mg Tablet 250 mg PO DAILY Discontinued diclofenac sodium 1 % Gel 2 g TOPICAL QID PRN (Reason: Pain) omega 5-ypc-lte-fish oil [Fish Oil] 1,000 mg (120 mg-180 mg) Capsule 1 cap PO QDL No Action Eliquis 5 mg tablet 5 mg PO BID Qty: 180 3RF Discharge Orders: Discharge Order (Routine); Ordered 06/25/24 Ordered By: Mike Merrill/Other Patient Handouts: Apixaban Oral Tablet, AFib Preventing Stroke, Understanding Atrial Flutter Admission Data Admit Date/Time: 06/23/24 12:45 Attending Provider: Mike Mckeon Admit Provider: Mike Johnson Primary Care Provider: Edilia Barrientos Other Providers: Nomi Joshi Other Interventions: Discharge Summary Assessment (RN) Last Done: 06/25/24 12:11 Hospital Stay Data Consultations [facility] Procedures Performed Echocardiogram - Diagnostic Imagining Performed Chest X-Ray 06/23/24 10:43 XR chest 1V portable CLINICAL HISTORY: Dysrhythmia COMPARISON STUDY: No previous studies for comparison. FINDINGS: Lung volumes are normal. Lungs are clear. There is no pneumothorax or pleural effusion. There is mild cardiomegaly. Mediastinal contours are normal. There is no evidence for pulmonary edema. IMPRESSION: No acute cardiopulmonary findings. Cardiomegaly. ACT 112: Negative or not required by law. Electronically signed by: Jeferson Go M.D. 06/23/2024 11:30 AM Head CTA 06/24/24 12:08 CT ANGIOGRAM OF THE BRAIN CLINICAL HISTORY: Family history of aneurysm. COMPARISON STUDY: No priors. TECHNIQUE: Following the IV administration of 120 cc of Optiray 320, CT angiogram of the brain was performed from the skull base to the vertex. Images are reviewed in the axial, sagittal, and coronal planes. 3-D MIPS images are created and assessed. IV contrast was administered without complication. A dose lowering technique was utilized adhering to the principles of ALARA. CT DOSE: 424.06 mGy.cm FINDINGS: Brain parenchyma: There is age related involutional change noting mildly arthropathic disease. There is no evidence of hemorrhage, mass effect, or acute territorial ischemia noting angiographic phase te[place]nique. There is no evidence of enhancing mass lesion on the angiogram phase images. No extra-axial fluid collection is seen. Mccollum-white matter differentiation is preserved. Ventricles, sulci, and cisterns: Normal in configuration. CT angiogram of the brain: The internal carotid arteries are widely patent, as are the anterior and middle cerebral arteries. The left A1 segment is atretic. The vertebrobasilar system and posterior cerebral arteries are widely patent. The left vertebral artery is dominant. There is a left posterior communicating artery. There is no aneurysm, high-grade stenosis, or focal vessel cutoff identified throughout the intracranial circulation. Dural sinuses: Clear as visualized. Orbits: The bony orbits are intact. The orbital contents are normal as visualized noting bilateral ocular lens implants. Sinuses and mastoids: The visualized paranasal sinuses are clear. There is trace right mastoid effusion. The left mastoid air cells are well pneumatized. Calvarium: Unremarkable. IMPRESSION: 1. There is no evidence of hemorrhage, mass effect, or acute territorial ischemia noting angiographic phase technique. 2. Unremarkable CT angiogram of the brain. ACT 112: Negative or not required by law. Electronically signed by: J Luis Vidal M.D. 06/24/2024 3:29 PM Neck CTA 06/24/24 12:08 NECK CTA HISTORY: famhx ruptured brain aneurysm TECHNIQUE: Multiaxial CT images of the neck were performed following the intravenous administration of contrast to evaluate the major cervical vessels. 3D/MIP images were also obtained. Sagittal and coronal reformats were reviewed. All measurements were calculated based on NASCET criteria. A dose lowering technique was utilized adhering to the principles of ALARA. COMPARISON STUDY: None. FINDINGS: The aortic arch and proximal great vessels are widely patent. There is no significant stenosis, occlusion, or dissection identified within the bilateral common carotid, internal carotid, or vertebral arteries. Degenerative changes within the cervical spine. There is a 1 cm hypodense nodule/cyst within the left side of the vallecula. There are few subcentimeter thyroid nodules. These do not meet CT criteria for follow-up. There is a hypoplastic right vertebral artery. IMPRESSION: 1. No significant stenosis, occlusion, or dissection identified within the carotid or vertebral arteries. 2. There is a 1 cm hypodense nodule/cyst within the left side of the vallecula. Direct visualization recommended for further evaluation. ACT 112: Negative or not required by law. Electronically signed by: Fidel Ribeiro M.D. 06/24/2024 3:34 PM Pending Results Patient Have Any Pending Studies at Discharge: No Discharge Instructions Given to Patient (Per Discharging Provider) Ms Chen, [place] were hospitalized due to a new diagnosis of atrial flutter (see handouts). This is an abnormal heart rhythm that originates from the top portion of the heart. This type of heart rhythm has tendencies to go very fast with rapid heart rates well over 100 in most cases. You were started on medicine to help control/reduce the heart rate. You were also initiated on blood thinning medication ("anticoagulation") which reduces the risk of blood clot formation in the heart. By preventing blood clot formation in the heart you can reduce the risk of stroke from atrial flutter. Dr Nomi Joshi from [facility] saw you in consult for the atrial flutter. The following are recommended - 1. Diltiazem CD 240mg once daily, first dose tomorrow morning 06/26/24 2. Eliquis 5mg twice daily every day, first dose TONIGHT Dr Joshi will see you in his office upon your return from your trip. If the atrial flutter is still uncontrolled or causing problems he could perform "Cardioversion" sometime in the future. Cardioversion is a procedure in which we shock the heart back into a normal rhythm. In addition to the above medicines please - 1. avoid use of motrin, ibuprofen, naprosyn, aleve, aspirin (anti-inflammatory medicine) 2. stop your fish oil supplement 3. with respect to your diclofenac gel - please use this sparingly for muscle/joint pain (once a day or less is best) As we discussed your CT scans of the head/neck did NOT show any aneurysms. That is great news. Incidentally the radiologist saw a tiny 1cm cyst or nodule in the back of the throat/upper airway. You will need a referral to ENT to have this checked. Follow-up - see separate section Other recommendations - * avoid excessive consumption of alcohol; 1 alcoholic drink or less per day is best in light of your new Eliquis use * when shaving use an electric or battery operated shaver rather than a traditional razor Seek medical attention if - * you check your resting heart rate/pulse and it is consistently greater than 110 * you have shortness of breath * you have chest pains * you have rapid heart beating/palpitations * you feel dizzy or lightheaded * you have worsening swelling/edema in your legs * you have bleeding from your bladder, your rectum, your skin, your nose, etc * any other concerns It was our pleasure to care for you! Safe Travels! Total Time Total Time Spent Total Time Spent (In Minutes): 40 Coding Level of Care Code 51349 INP/OBS DISCH >30 MIN Diagnoses Atrial flutter with rapid ventricular response I48.92 Dysuria R30.0 Family history of brain aneurysm Z82.[address] scan, neck R93.89
[2024-06-25 11:32] VITALS: BP 139/73; PULSE 75; RESP 20; TEMP 97.3; O2SAT 96
[2024-06-25 12:35] LABS: Chlam trach RNA(Genit,Ureth,Ur Not Detected (NotDetected); GC(Neis gon)RNA(Genit,Ureth,Ur Not Detected (NotDetected)
--- NOTE | 2024-06-25 23:10 | Electrocardiogram Report ---
Test Reason : Blood Pressure : */* mmHG Vent. Rate : 102 BPM Atrial Rate : 300 BPM P-R Int : * ms QRS Dur : 68 ms QT Int : 348 ms P-R-T Axes : * 86 56 degrees QTcB Int : 453 ms Atrial flutter with variable A-V block Abnormal ECG When compared with ECG of 23-Jun-2024 10:39, No significant change Confirmed by Donavan Taylor ([id number]) on 06/25/2024 11:10:04 PM Referred By: REFERRED SELF Confirmed By: Donavan Taylor
--- NOTE | 2024-06-26 05:59 | Electrocardiogram Report ---
Test Reason : Blood Pressure : */* mmHG Vent. Rate : 82 BPM Atrial Rate : 300 BPM P-R Int : * ms QRS Dur : 76 ms QT Int : 382 ms P-R-T Axes : 225 87 76 degrees QTcB Int : 446 ms Atrial flutter with variable A-V block Abnormal ECG When compared with ECG of 23-Jun-2024 11:21, No significant change was found Confirmed by Donavan Taylor ([id number]) on 06/26/2024 5:58:28 AM Referred By: REFERRED SELF Confirmed By: Donavan Taylor
--- NOTE | 2024-06-26 06:00 | Electrocardiogram Report ---
Test Reason : Blood Pressure : */* mmHG Vent. Rate : 78 BPM Atrial Rate : 300 BPM P-R Int : * ms QRS Dur : 76 ms QT Int : 380 ms P-R-T Axes : 224 78 75 degrees QTcB Int : 433 ms Atrial flutter with variable A-V block Nonspecific ST abnormality Abnormal ECG When compared with ECG of 25-Jun-2024 05:10, No significant change was found Confirmed by Donavan Taylor ([id number]) on 06/26/2024 6:00:15 AM Referred By: REFERRED SELF Confirmed By: Donavan Taylor
--- NOTE | 2024-06-26 06:00 | Electrocardiogram Report ---
Test Reason : Blood Pressure : */* mmHG Vent. Rate : 81 BPM Atrial Rate : 300 BPM P-R Int : * ms QRS Dur : 74 ms QT Int : 382 ms P-R-T Axes : * 85 57 degrees QTcB Int : 443 ms Atrial flutter with variable A-V block When compared with ECG of 24-Jun-2024 06:05, No significant change Confirmed by Donavan Taylor ([id number]) on 06/26/2024 6:00:05 AM Referred By: REFERRED SELF Confirmed By: Donavan Taylor
--- NOTE | 2024-06-26 06:01 | Electrocardiogram Report ---
Test Reason : Blood Pressure : */* mmHG Vent. Rate : 85 BPM Atrial Rate : 300 BPM P-R Int : * ms QRS Dur : 80 ms QT Int : 366 ms P-R-T Axes : * 92 65 degrees QTcB Int : 435 ms Atrial flutter with variable A-V block Rightward axis Abnormal ECG When compared with ECG of 25-Jun-2024 05:35, No significant change was found Confirmed by Donavan Taylor ([id number]) on 06/26/2024 6:00:36 AM Referred By: REFERRED SELF Confirmed By: Donavan Taylor
== END 2024-06-25 12:30 | disposition home or self-care (01) | DRG 310 ==
LOC: ED 10:32 → SUATTDRO 12:45 → 2S 12:45